=== PATIENT | female | born 1970 | race Caucasian/White ===

== ENCOUNTER 2022-08-04 09:55 | Day surgery (SDC) | payer BC ==
[~2022-08-04] VITALS: Ht 154.9 cm; Wt 83.0 kg
[2022-08-04] MEDS ORDERED: SEVOFLURANE 15 MIN GAS INH ONE (11:40)
[2022-08-04] MEDS ORDERED: MIDAZOLAM HCL 2 MG/2 ML VIAL (VERSED) ONE (11:40)
[2022-08-04] MEDS ORDERED: NS IRRIG SOLN 1000 ML IR ONE (11:40)
[2022-08-04] MEDS ORDERED: ONDANSETRON HCL 4 MG/2 ML VIAL ONE (11:40)
[2022-08-04] MEDS ORDERED: DEXAMETHASONE SOD PHOSPHATE 4 MG/ML VIAL ONE (11:40)
[2022-08-04] MEDS ORDERED: PROPOFOL 200MG/ 20ML VIAL (DIPRIVAN) IV ONE (11:40)
[2022-08-04] MEDS ORDERED: LR 1,000 ML IV.SOLN IV ONE (11:40)
[2022-08-04] MEDS ORDERED: fentaNYL CITRATE/PF 100 MCG/2 ML AMP ONE (11:40)
[2022-08-04] MEDS ORDERED: LR 1,000 ML IV SCH (11:45)
[2022-08-04] MEDS ORDERED: hydrALAZINE HCL 20 MG/ML VIAL IVP PRN (11:45)
[2022-08-04] MEDS ORDERED: LABETALOL 100 MG/ 20ML VIAL IVP PRN (11:45)
[2022-08-04] MEDS ORDERED: MIDAZOLAM HCL 2 MG/2 ML VIAL (VERSED) IVP PRN (11:45)
[2022-08-04] MEDS ORDERED: METOCLOPRAMIDE HCL 10 MG/2 ML VIAL IVP PRN (11:45)
[2022-08-04] MEDS ORDERED: HYDROmorphone 1 MG/ML INJ. CARTRIDGE IVP PRN ×2 (11:45)
[2022-08-04 14:56] VITALS: BP_SYST 111
== END 2022-08-04 14:50 | disposition home or self-care (01) ==
LOC: SDS 09:55 → SMU 09:56 → SDS 14:50
PROVIDERS: ATTEND Obstetrics & Gynecology
DX: N95.0 Postmenopausal bleeding (principal); N84.0 Polyp of corpus uteri; I10 Essential (primary) hypertension; E78.5 Hyperlipidemia, unspecified; G40.909 Epilepsy, unspecified, not intractable, without status epilepticus; Z20.822 Contact with and (suspected) exposure to COVID-19; Z79.899 Other long term (current) drug therapy
CPT/HCPCS: 36415 ×2; 58558; 88305; 87426; U0003; J1100; J3465; J2405; J2704; J3010; J7120; C1819